=== PATIENT | female | born 1965 | race Two or more races ===

== ENCOUNTER 2021-05-18 18:53 | Emergency (ER) | payer SELFPAY ==
[~2021-05-18] VITALS: Ht 175.3 cm; Wt 77.1 kg
[2021-05-18 19:12] VITALS: BP 153/79
== END 2021-05-18 20:54 | disposition left against medical advice (07) ==
LOC: ER 18:55
DX: R07.0 Pain in throat (principal); Z53.21 Procedure and treatment not carried out due to patient leaving prior to being seen by health care provider

== ENCOUNTER 2025-07-07 18:36 | Inpatient (IN) | payer OTHER ==
[~2025-07-07] VITALS: Ht 175.3 cm; Wt 89.0 kg
[2025-07-07 20:53] LABS: Hematocrit 47.2 % (36.0-46.0); Hemoglobin 16.6 g/dL (12.2-16.2); Mean Corpuscular Hemoglobin 32.4 pg (28.0-32.0); Mean Corpuscular Volume 92.1 fL (80.0-100.0); Nucleated Red Blood Cells % 1.7 %
--- NOTE | 2025-07-07 21:07 | ED.PDOC ---
History of Present Illness HPI Comments 60 y/o F presents with c/c of right sided abdominal pain. Endorsement of 1x week history. She states on pain, now, radiating to her lower abdominal region, with associated nausea. Denies any vomiting, diarrhea, constipation, urinary symptoms, or further associated symptoms. 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 Family History Family History: Unknown Social History Smoker: Non-Smoker Alcohol: Occasionally Drugs: Denies Drug Use Lives In: Home All Other Systems: Reviewed and Negative (Comprehensive review of systems are negative unless stated in HPI) Physical Exam General Appearance: No Apparent Distress, Normal HEENT: Normal ENT Inspection, Pharynx Normal, TMs Normal Neck: Full Range of Motion, Non-Tender, Normal, Normal Inspection Respiratory: Chest Non-Tender, Lungs Clear, No Accessory Muscle Use, No Respiratory Distress, Normal Breath Sounds Cardiovascular: No Edema, No JVD, No Murmur, No Gallop, Normal Peripheral Pulses, Regular Rate/Rhythm Breast Exam: Deferred Gastrointestinal: No Organomegaly, No Pulsatile Mass, Normal Bowel Sounds, RLQ (tenderness ), Soft, Tenderness (RLQ) Genitalia: Deferred Pelvic: Deferred Rectal: Deferred Extremities: No calf tenderness, Normal capillary refill, Normal inspection, Normal range of motion, Non-tender, No pedal edema Musculoskeletal : Apperance: Normal Neurologic: Alert, license registration examiner [id number] nml as Tested, No Motor Deficits, Normal Affect, Normal Mood, No Sensory Deficits Cerebellar Function: Normal Reflexes: Normal Skin: Dry, Normal Color, Warm Lymphatic: No Adenopathy Was a procedure done? Was a procedure done?: No Differential Dx Considerations may include: Gastritis, gastroenteritis, GERD, cholelithiasis, cholecystitis, pyelonephritis, cystitis, nephrolithiasis, appendicitis, diverticulitis, PID, ovarian cysts/torsion, among others X-Ray, Labs, Meds, VS Vital Signs Date Time Temp Pulse Resp B/P (MAP) Pulse Ox O2 Delivery O2 Flow Rate FiO2 07/07/25 18:40 97.9 85 15 150/101 96 97.9 Lab Test 07/07/25 21:30 07/07/25 20:36 Range/Units Urine Color Colorless Yellow Urine Clarity Clear Clear Urine pH 5.0 5.0-9.0 Urine Specific [place] 1.008 1.001-1.035 Urine Protein Negative Negative Urine Ketones Negative Negative Urine Blood Negative Negative /uL Urine Nitrite Negative Negative Urine Bilirubin Negative Negative Urine Urobilinogen Normal Negative mg/dL Urine Leukocyte Esterase Negative Negative /uL Urine RBC <1 0 - 4 /hpf Urine Microscopic WBC < 1 0-5 /HPF Urine Squamous Epithelial Cells Few <5 /hpf Urine Bacteria None seen None Seen /hpf Urine Glucose Normal Normal mg/dL White Blood Count 11.0 H 4.4-10.8 10^3/uL Red Blood Count 5.13 4.0-5.20 10^6/uL Hemoglobin 16.6 H 12.2-16.2 g/dL Hematocrit 47.2 H 36.0-46.0 % Mean Corpuscular Volume 92.1 80.0-100.0 fL Mean Corpuscular Hemoglobin 32.4 H 28.0-32.0 pg Mean Corpuscular Hemoglobin Concent 35.2 32.0-36.0 g/dL Red Cell Distribution Width 13.4 11.8-14.3 % Platelet Count 205 140-450 10^3/uL Mean Platelet Volume 8.3 6.9-10.8 fL Neutrophils (%) (Auto) 79.4 37.0-80.0 % Lymphocytes (%) (Auto) 13.2 10.0-50.0 % Monocytes (%) (Auto) 6.4 0.0-12.0 % Eosinophils (%) (Auto) 0.7 0.0-7.0 % Basophils (%) (Auto) 0.3 0.0-2.0 % Neutrophils # (Auto) 8.8 H 1.6-8.6 10 ^3/uL Lymphocytes # (Auto) 1.5 0.4-5.4 10 ^3/uL Monocytes # (Auto) 0.7 0-1.3 10 ^3/uL Eosinophils # (Auto) 0.1 0-0.8 10 ^3/uL Basophils # (Auto) 0 0-0.2 10 ^3/uL Nucleated Red Blood Cells 1.7 % Sodium Level 143 136-145 mmol/L Potassium Level 4.3 3.5-5.1 mmol/L Chloride Level 104 98-107 mmol/L Carbon Dioxide Level 28 20-31 mmol/L Anion Gap 11 5-15 Blood Urea Nitrogen 10 9-23 mg/dL Creatinine 0.77 0.550-1.02 mg/dL Glomerular Filtration Rate Calc 88 >90 mL/min BUN/Creatinine Ratio 13.0 10.0-20.0 Serum Glucose 111 H 74-106 mg/dL Calcium Level 10.1 8.7-10.4 mg/dL Total Bilirubin 0.8 0.2-1.0 mg/dL Aspartate Amino Transferase (AST) 29 13-40 U/L Alanine Aminotransferase (ALT) 34 7-40 U/L Alkaline Phosphatase 82 46-116 U/L Total Protein 8.1 5.7-8.2 g/dL Albumin 4.8 3.2-4.8 g/dL Lipase 42 12-53 U/L Time of 1ST Reevaluation: 20:50 Reevaluation 1ST: Unchanged Patient Education/Counseling: Diagnosis, Treatment, Need For Follow Up Family Education/Counseling: No Family Present SEPSIS Sepsis Screen Date sepsis recognized/suspect: Jul 07, 2025 Time Sepsis recognized/suspect: 1841 Recent Procedure: No On Antibiotic Therapy: No Respiratory Rate >20: No Heart Rate >90: No Temp<36 C (96.8 F) or >38.3 C: No SBP <90 or MAP <65 mmHG: No New Acute Mental Status Change: No Is the patient on CPAP, BIPAP,: No Physician Orders Ct Ab Pel With Iv Con Only (07/07/25 20:19) Vital Signs Date Time Temp Pulse Resp B/P (MAP) Pulse Ox O2 Delivery O2 Flow Rate FiO2 07/07/25 18:40 97.9 85 15 150/101 96 97.9 Laboratory Tests Test 07/07/25 20:36 White Blood Count 11.0 10^3/uL (4.4-10.8) H Departure 1 Departure Time of Disposition: 22:37 Impression: Primary Impression: Ovarian mass, right Disposition: ADMITTED INPATIENT Admit to: Med Surg Condition: Guarded Discharged With: Self Comments 60-year-old female with right lower quadrant abdominal pain. CT of the abdomen and pelvis shows a large cystic right ovarian mass consistent with neoplasm. Patient is still in pain on re-evaluation. Patient will need to be admitted for supportive care and further workup. Critical Care Note Critical Care Time?: No Stability Stability form required: No Heart Score Heart Score: Heart Score Response (Comments) Value History N/A 0 EKG N/A 0 Age N/A 0 Risk Factors N/A 0 Troponin N/A 0 Total 0 I personally scribed for SPARKLE LOUISE MD ([email or web address]) on 07/07/25 at 21:07. Electronically submitted by Elbert Centeno ([email or web address]). SPARKLE LOUISE MD Jul 07, 2025 21:07
[2025-07-07 21:09] LABS: Alanine Aminotransferase 34 U/L (7-40); Alkaline Phosphatase 82 U/L (46-116); Anion Gap 11 (5-15); BUN/Creatinine Ratio 13.0 (10.0-20.0); Blood Urea Nitrogen 10 mg/dL (9-23); Calcium 10.1 mg/dL (8.7-10.4); Carbon Dioxide 28 mmol/L (20-31); Chloride 104 mmol/L (98-107); Lipase 42 U/L (12-53); Potassium 4.3 mmol/L (3.5-5.1); Sodium 143 mmol/L (136-145); Total Protein 8.1 g/dL (5.7-8.2)
[2025-07-07 21:10] LABS: Bilirubin, Total 0.8 mg/dL (0.2-1.0)
[2025-07-07 21:14] LABS: Albumin 4.8 g/dL (3.2-4.8); Glucose 111 mg/dL (74-106)
[2025-07-07 22:06] LABS: Urine Protein, UAD Negative (Negative)
--- NOTE | 2025-07-07 22:26 | DVH ---
Exam: CT CT AB PEL WITH IV CON ONLY History: RLQ pain COMPARISON: None Technique: Multidetector spiral CT of the abdomen and pelvis was performed from lung bases to pubic s ymphysis. Intravenous contrast was administered during this examination. Portal venous imaging was o btained. Axial, coronal and sagittal multiplanar reformats were performed by the technologist on a [employer] workstation. Radiation Dose : 1. Abdomen/Pelvis: CTDIvol 25.03mGy, DLP 1427.06 mGy*cm. CONTRAST: Type of contrast: Omnipaque 300 Contrast injected: 100 ml Findings: Lung Bases: No acute or significant lung base finding. Normal heart size. No pleural or pericardial effusion. Liver: The liver is normal in size. No focal lesions. Normal hepatic vascular enhancement. Gallbladder and Biliary Tree: Unremarkable Spleen: Unremarkable Pancreas: The pancreas is normal in appearance without focal lesions or abnormal enhancement. Adrenal Glands: Unremarkable Kidneys: No hydronephrosis. Bladder: Unremarkable Bowel: Small hiatal hernia. Small bowel and colon are normal in caliber and distribution. The appendi x is not visualized; however, no secondary findings of acute appendicitis identified. Ascites: Absent Lymphadenopathy: No mesenteric, retroperitoneal or periportal lymphadenopathy. Abdominal Wall and Mesentery: Unremarkable. Vasculature: The visualized abdominal aorta is normal in size and caliber. Abdominal and pelvic vess els demonstrate normal enhancement. Pelvic Organs: Large multiloculated cystic mass filling the lower abdomen and pelvis measuring 21.0 x 12.1 by 17.8 cm, presumably ovarian in origin. Few fairly thin septations noted. Some soft tissue se en within the right adnexa measuring 4.9 x 5.0 cm, likely right ovarian parenchyma. Musculoskeletal: No aggressive focal bony lesions, acute fractures or dislocation. IMPRESSION: Large cystic mass occupying the lower abdomen and pelvis, presumably a cystic ovarian neoplasm. Gynec ology consultation recommended to guide workup. Radiation optimization: All CT scans at this facility use at least one of these dose optimization devan hniques: automated exposure control mA and/or kV adjustment per patient size (includes targeted exam s where dose is matched to clinical indication) or iterative reconstruction.
[2025-07-07] MEDS: SODIUM CHLORIDE 0.9% 1,000 ML IV ONE (22:47)
[2025-07-07 22:52] VITALS: PULSE 94; RESP 17; O2SAT 97
--- NOTE | 2025-07-07 23:32 | DVHHPRES ---
History of Present Illness Resident Creating Document: SANJU COHEN History of Present Illness Ms. Loo is a 60-year-old female with no prior medical history, who presents today with chief complaint of constipation and abdominal pain. The patient states for the last 7 days she has had sharp pain in the right lumbar region which migrates on occasion to left lumbar region and lower abdominal quadrant as well, without aggravating factors, with minor relief on laying down, associated constipation for the last 3 days, abdominal bloating, fullness sensation, fatigue, and urinary frequency. She denies vomiting, unintended weight loss, vaginal bleeding, chest pain, shortness of breath, and other symptoms. On evaluation in the ED, patient was hypertensive other vitals were stable. Initial labs show leukocytosis, CMP within normal range, and UA without significant findings. Abdominal/pelvic CT shows large multiloculated cystic mass filling the lower abdomen and pelvis measuring 21 x 12.1 x 17.8 cm, presumably ovarian in origin, with few fairly thin septations noted, presumably a cystic ovarian neoplasm. She was admitted for further work up and monitoring. Prior medical history: Denies Surgical history: Breast reduction surgery, tonsillectomy Family history: -Mother: Colon cancer, uterine cancer -Maternal grandmother: Colon cancer -Sister: Type 1 diabetes mellitus Allergies: Ciprofloxacin (caused extreme weakness) Social: Denies drug and tobacco use. States she drinks 2 glasses of wine nightly. She states she lives with her and feels safe. Review of Systems Review of Systems Constitutional: Refers fatigue and malaise, Denies weight loss, fever and chills. HEENT: Denies changes in vision and hearing. Respiratory: Denies shortness of breath and cough Cardiovascular: Denies chest discomfort or palpitations GI: Refers abdominal pain, bloating, fullness sensation, and constipation, Denies diarrhea : Refers urinary frequency, Denies dysuria Musculoskeletal: Denies symptoms Skin: Denies rash and pruritus. Neurological: denies dizziness headache vision or hearing problems Allergies: Coded Allergies: Ciprofloxacin (Verified Allergy, Unknown, 05/18/21) Exam Vital Signs Vital Signs Date Time Temp Pulse Resp B/P (MAP) Pulse Ox O2 Delivery O2 Flow Rate FiO2 07/07/25 22:52 94 17 97 Room Air* 0 21 07/07/25 22:52 98.9 130/79 (96) 98.9 Exam General: The patient alert and oriented in person place and time. Patient following commands HEENT: Normocephalic, atraumatic, normal reactive pupils, EOM intact, pink conjunctiva, pink moist mucous membrane Respiratory/pulmonary: Bilateral chest expansion, no pain on palpation of chest wall, clear lungs bilaterally, vesicular murmurs present in almost all lung suggs, no associated crackles or wheezes. Cardiovascular: Normal RRR, normal S1 and S2, no murmurs Abdomen: Abdomen nondistended, normal bowel sounds, soft, pain on palpation of umbilical region and lower abdominal quadrants, could not evaluate masses due to pain Extremities: No deformities, there is no peripheral edema present at the lower extremities, normal pulses Skin: No rashes or pruritus, there is no sacral edema present at this time. Neurological: Intact cranial nerves with no focal neurologic deficits Labs/Xrays Labs Test 07/07/25 21:30 07/07/25 20:36 Range/Units Urine Color Colorless Yellow Urine Clarity Clear Clear Urine pH 5.0 5.0-9.0 Urine Specific [place] 1.008 1.001-1.035 Urine Protein Negative Negative Urine Ketones Negative Negative Urine Blood Negative Negative /uL Urine Nitrite Negative Negative Urine Bilirubin Negative Negative Urine Urobilinogen Normal Negative mg/dL Urine Leukocyte Esterase Negative Negative /uL Urine RBC <1 0 - 4 /hpf Urine Microscopic WBC < 1 0-5 /HPF Urine Squamous Epithelial Cells Few <5 /hpf Urine Bacteria None seen None Seen /hpf Urine Glucose Normal Normal mg/dL White Blood Count 11.0 H 4.4-10.8 10^3/uL Red Blood Count 5.13 4.0-5.20 10^6/uL Hemoglobin 16.6 H 12.2-16.2 g/dL Hematocrit 47.2 H 36.0-46.0 % Mean Corpuscular Volume 92.1 80.0-100.0 fL Mean Corpuscular Hemoglobin 32.4 H 28.0-32.0 pg Mean Corpuscular Hemoglobin Concent 35.2 32.0-36.0 g/dL Red Cell Distribution Width 13.4 11.8-14.3 % Platelet Count 205 140-450 10^3/uL Mean Platelet Volume 8.3 6.9-10.8 fL Neutrophils (%) (Auto) 79.4 37.0-80.0 % Lymphocytes (%) (Auto) 13.2 10.0-50.0 % Monocytes (%) (Auto) 6.4 0.0-12.0 % Eosinophils (%) (Auto) 0.7 0.0-7.0 % Basophils (%) (Auto) 0.3 0.0-2.0 % Neutrophils # (Auto) 8.8 H 1.6-8.6 10 ^3/uL Lymphocytes # (Auto) 1.5 0.4-5.4 10 ^3/uL Monocytes # (Auto) 0.7 0-1.3 10 ^3/uL Eosinophils # (Auto) 0.1 0-0.8 10 ^3/uL Basophils # (Auto) 0 0-0.2 10 ^3/uL Nucleated Red Blood Cells 1.7 % Sodium Level 143 136-145 mmol/L Potassium Level 4.3 3.5-5.1 mmol/L Chloride Level 104 98-107 mmol/L Carbon Dioxide Level 28 20-31 mmol/L Anion Gap 11 5-15 Blood Urea Nitrogen 10 9-23 mg/dL Creatinine 0.77 0.550-1.02 mg/dL Glomerular Filtration Rate Calc 88 >90 mL/min BUN/Creatinine Ratio 13.0 10.0-20.0 Serum Glucose 111 H 74-106 mg/dL Calcium Level 10.1 8.7-10.4 mg/dL Total Bilirubin 0.8 0.2-1.0 mg/dL Aspartate Amino Transferase (AST) 29 13-40 U/L Alanine Aminotransferase (ALT) 34 7-40 U/L Alkaline Phosphatase 82 46-116 U/L Total Protein 8.1 5.7-8.2 g/dL Albumin 4.8 3.2-4.8 g/dL Lipase 42 12-53 U/L SEPSIS Sepsis Screen Date sepsis recognized/suspect: Jul 07, 2025 Time Sepsis recognized/suspect: 1841 Recent Procedure: No On Antibiotic Therapy: No Respiratory Rate >20: No Heart Rate >90: No Temp<36 C (96.8 F) or >38.3 C: No SBP <90 or MAP <65 mmHG: No New Acute Mental Status Change: No Is the patient on CPAP, BIPAP,: No Physician Orders Ct Ab Pel With Iv Con Only (07/07/25 20:19) Vital Signs Date Time Temp Pulse Resp B/P (MAP) Pulse Ox O2 Delivery O2 Flow Rate FiO2 07/07/25 22:52 94 17 97 Room Air* 0 21 07/07/25 22:52 98.9 94 17 130/79 (96) 97 98.9 07/07/25 18:40 97.9 85 15 150/101 96 97.9 Laboratory Tests Test 07/07/25 20:36 White Blood Count 11.0 10^3/uL (4.4-10.8) H Medications Medications Dose Ordered Sig/Julian Route Start Time Stop Time Status Last Admin Dose Admin Sodium Chloride 1,000 ml @ 1,000 mls/hr Q1H ONCE IV 07/07/25 20:30 07/07/25 21:29 DC 07/07/25 22:47 1,000 MLS/HR Assessment/Plan Assessment/Plan Assessment and Plan: Ovarian Mass Possible bowel obstruction due to above - Abdomen/pelvic CT: Large multiloculated cystic mass filling the lower abdomen and pelvis measuring 21 x 12.1 x 17.8 cm, presumably ovarian in origin. Few fairly thin septations noted. Some soft tissue seen within the right adnexa measuring 4.9 x 5.0 cm, likely right ovarian parenchyma. Presumably a cystic ovarian neoplasm. - CA125 ordered - CEA ordered - OBGYN consult has been ordered - NPO pending OBGYN evaluation - NS 1000 cc bolus IV once - NS maintenance 75 cc/hr IV - Zofran 4 mg IV q 4 hours PRN Intractable abdominal secondary to above - Toradol 15 mg IV q.6 hours PRN Diet: NPO DVT prophylaxis: Enoxaparin 40 mg SC daily GI prophylaxis: Protonix 40 mg IV daily Case discussed with Dr. Quintanilla Goals of care discussed with the patient for over 26 minutes. FULL CODE. Plan discussed with: Patient, Other (Nurses) Date of Service: Jul 07, 2025 Billing Provider: SHERRIE CARO MD Common Visit Codes: 63070-[id number] INP/OBS CARE (HIGH) Secondary Visit Codes: 05714-[id number] CARE PLAN 30 MINUTES SANJU COHEN RESIDENT Jul 07, 2025 23:32 TALI VELÁSQUEZ RESIDENT Jul 08, 2025 08:49
[2025-07-08] MEDS: SODIUM CHLORIDE 0.9% 1,000 ML IV SCH
[2025-07-08] MEDS ORDERED: ONDANSETRON HCL 4 MG/2 ML VIAL IV PRN
[2025-07-08 01:32] VITALS: BP 143/96; PULSE 88; RESP 18; TEMP 98.6; O2SAT 96
[2025-07-08 01:34] VITALS: BP 143/96; PULSE 88; RESP 18; TEMP 98.6; O2SAT 96
[2025-07-08] MEDS: PANTOPRAZOLE 40 MG/10 ML VIAL INJ IV ONE (03:02)
[2025-07-08 03:18] LABS: Amphetamine Screen, Urine Neg (NEGATIVE); Barbiturate Scree,Urine Neg (NEGATIVE); Benzodiazephine Screen, Urine Neg (NEGATIVE); Cannabinoid Screen, Urine Neg (NEGATIVE); Cocaine Screen, Urine Neg (NEGATIVE); Opiate Scree,Urine Neg (NEGATIVE); Phencyclidine Screen, Urine Neg (NEGATIVE)
[2025-07-08 05:55] LABS: Hematocrit 44.1 % (36.0-46.0); Hemoglobin 15.2 g/dL (12.2-16.2); Mean Corpuscular Hemoglobin 32.0 pg (28.0-32.0); Mean Corpuscular Volume 92.7 fL (80.0-100.0); Nucleated Red Blood Cells % 0.0 %
[2025-07-08 06:06] LABS: Anion Gap 10 (5-15); Carbon Dioxide 27 mmol/L (20-31); Potassium 3.8 mmol/L (3.5-5.1); Sodium 144 mmol/L (136-145)
[2025-07-08 06:07] LABS: Calcium 9.1 mg/dL (8.7-10.4)
[2025-07-08 06:12] LABS: BUN/Creatinine Ratio 13.0 (10.0-20.0); Blood Urea Nitrogen 9 mg/dL (9-23); Glucose 102 mg/dL (74-106); Magnesium 2.1 mg/dL (1.6-2.6)
[2025-07-08 06:22] LABS: Chloride 107 mmol/L (98-107)
[2025-07-08 08:10] VITALS: PULSE 72; RESP 18; O2SAT 94
[2025-07-08 08:29] VITALS: BP 150/85; PULSE 72; RESP 18; TEMP 98.6; O2SAT 94
[2025-07-08] MEDS: KETOROLAC TROMETH 30 MG/ML 1ML VIAL IV PRN (08:56)
[2025-07-08] MEDS: ENOXAPARIN SOD 40 MG/0.4 ML SYRINGE SC SCH (08:56)
[2025-07-08] MEDS ORDERED: POLYETHYLENE GLYCOL 17 GM PWDR PO PRN (09:00)
--- NOTE | 2025-07-08 09:14 | DVH ---
INDICATION: Ovarian mass, r/o malignancy TECHNIQUE: Multiple real-time grayscale transabdominal sonographic images along with color and duplex Doppler of the uterus and ovaries were obtained. COMPARISON: 07/07/2025 FINDINGS: The uterus measures 8.2 x 5.3 x 4.2 cm. The endometrial stripe measures 1.7 cm. The right ovary measures 19.0 x 16.1 x 20.3 cm. Complex right adnexal cystic mass measuring 16 cm. The left ovary is not well visualized due to obscuration from bowel gas. IMPRESSION: Complex right adnexal cystic mass measuring 16 cm. 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 Recommend gynecologic consultation and correlation with serum ovarian tumor markers.
[2025-07-08 10:15] LABS: Carcinoembryonic Antigen < 0.50 ng/mL (<=5.0)
--- NOTE | 2025-07-08 11:04 | DVHINCON2 ---
Date of service: Jul 08, 2025 Referring Physician hospitalist Reason for Consultation ovarian mass History of Present Illness 60 y/o FEMALE ADMITTED FOR ABDOMINAL PAIN,CONSTIPATION AND SHARP LOWER ABD PAIN OF 3 DAY DURATION ASSOCIATED WITH SOME NAUSEA..HER LAST PAP WAS MANY YRS AGO .SHE DENIES HAVING ANY POST MENOUPAUSAL BLEEDING .MENOPAUSE WAS AT [facility]. CT OF ABDOMEN REVEALS MULTILOCULATED CYSTIC MASS OCCUPAYING LOWER ABD AND PELVIC [id number] CM.CA125 IS PENDING Past Medical History NONE Past Surgical History TONSILECTOMY AND BREAST REDUCTION Family History POS FOR DM,UTERINE CA AND COLON CA Social History ONE ,NO ETOH OR TOBACCO USE Patient Family History: Colon cancer G8 MOTHER Diabetes mellitus G8 FATHER FH: uterine cancer G8 MOTHER Allergies: Coded Allergies: Ciprofloxacin (Verified Allergy, Unknown, 05/18/21) Home Meds No Active Prescriptions or Reported Meds Current Medications Current Medications Medications (Trade) Dose Ordered Sig/Julian Route PRN Reason Start Time Stop Time Status Last Admin Enoxaparin Sodium (Lovenox) 40 mg DAILY SC 07/08/25 10:00 07/08/25 08:56 Sodium Chloride 1,000 ml @ 75 mls/hr [id number] IV 07/08/25 00:00 Ketorolac Tromethamine (Toradol Injection) 15 mg Q6HPRN PRN IV MILD PAIN (1-3 PAIN SCALE) 07/08/25 00:00 07/13/25 00:00 07/08/25 08:56 Ondansetron HCl (Zofran) 4 mg Q4HPRN PRN IV NAUSEA / VOMITING 07/08/25 00:00 Pantoprazole Sodium (Protonix) 40 mg DAILY IV 07/09/25 10:00 Polyethylene Glycol (Miralax 17GM Powder) 17 gm DAILYPRN PRN PO FOR CONSTIPATION 07/08/25 09:00 Review of Systems Constitutional: no fever, chill, weight loss HEENT: no eye pain, no hearing loss, no oral lesion, no scleral icterus Heart: no chest pain, no chest pressure Lung: no cough, no dyspnea with exertion Abdomen: see HPI : no pain with urination, normal appearing urine Musculoskeletal: no joint pain, no muscle pain Neurological: no seizure, no loss of sensation, no weakness in extremities Pysch: no depression, no anxiety Derm: no rash, no jaundice Vital Signs Vital Signs Date Time Temp Pulse Resp B/P (MAP) Pulse Ox O2 Delivery O2 Flow Rate FiO2 07/08/25 08:29 98.6 72 18 150/85 (106) 94 98.6 07/08/25 08:10 Room Air* 0 21 Physical Exam SKIN: [NL] HEENT: [NL] NECK: [NL] CARDIAC: [RRR] PULMONARY: [CTA] ABDOMEN: [OBESE,SOMEWHAT DISTENDED,POS BS,VOLUNTARY REBOUND AND TENDERNESS LOWER ABD NOTED] BREASTS SYMMETRICAL,NO MASSES PELVIC-EXT GENT WNL,VAG ATROPHIC,CX GROSSLY NL ,UTERUS NL SIZE,ADENXAL TENDERNESS BILT EXT-NO CCE Labs/Diagnostic Data Labs Test 07/08/25 05:12 07/08/25 02:30 07/07/25 21:30 07/07/25 20:36 Range/Units White Blood Count 7.1 # 4.4-10.8 10^3/uL Red Blood Count 4.76 4.0-5.20 10^6/uL Hemoglobin 15.2 12.2-16.2 g/dL Hematocrit 44.1 36.0-46.0 % Mean Corpuscular Volume 92.7 80.0-100.0 fL Mean Corpuscular Hemoglobin 32.0 28.0-32.0 pg Mean Corpuscular Hemoglobin Concent 34.5 32.0-36.0 g/dL Red Cell Distribution Width 13.5 11.8-14.3 % Platelet Count 184 140-450 10^3/uL Mean Platelet Volume 8.2 6.9-10.8 fL Neutrophils (%) (Auto) 55.9 37.0-80.0 % Lymphocytes (%) (Auto) 33.6 10.0-50.0 % Monocytes (%) (Auto) 8.5 0.0-12.0 % Eosinophils (%) (Auto) 1.5 0.0-7.0 % Basophils (%) (Auto) 0.5 0.0-2.0 % Neutrophils # (Auto) 3.9 1.6-8.6 10 ^3/uL Lymphocytes # (Auto) 2.4 0.4-5.4 10 ^3/uL Monocytes # (Auto) 0.6 0-1.3 10 ^3/uL Eosinophils # (Auto) 0.1 0-0.8 10 ^3/uL Basophils # (Auto) 0 0-0.2 10 ^3/uL Nucleated Red Blood Cells 0.0 % Sodium Level 144 136-145 mmol/L Potassium Level 3.8 3.5-5.1 mmol/L Chloride Level 107 98-107 mmol/L Carbon Dioxide Level 27 20-31 mmol/L Anion Gap 10 5-15 Blood Urea Nitrogen 9 9-23 mg/dL Creatinine 0.69 0.550-1.02 mg/dL Glomerular Filtration Rate Calc 99 >90 mL/min BUN/Creatinine Ratio 13.0 10.0-20.0 Serum Glucose 102 74-106 mg/dL Calcium Level 9.1 8.7-10.4 mg/dL Phosphorus Level 2.9 2.4-5.1 mg/dL Magnesium Level 2.1 1.6-2.6 mg/dL Carcinoembryonic Antigen < 0.50 <=5.0 ng/mL Vitamin B12 Level 529 211-911 pg/mL Vitamin D 25-Hydroxy 40.8 30.0-100 ng/mL Thyroid Stimulating Hormone (TSH) 3.67 0.55-4.78 uIU/mL Urine Opiates Screen Neg NEGATIVE Urine Fentanyl Screen Neg NEGATIVE Urine Barbiturates Screen Neg NEGATIVE Urine Phencyclidine Screen Neg NEGATIVE Urine Amphetamines Screen Neg NEGATIVE Urine Benzodiazepines Screen Neg NEGATIVE Urine Cocaine Screen Neg NEGATIVE Urine Cannabinoids Screen Neg NEGATIVE Urine Color Colorless Yellow Urine Clarity Clear Clear Urine pH 5.0 5.0-9.0 Urine Specific [place] 1.008 1.001-1.035 Urine Protein Negative Negative Urine Ketones Negative Negative Urine Blood Negative Negative /uL Urine Nitrite Negative Negative Urine Bilirubin Negative Negative Urine Urobilinogen Normal Negative mg/dL Urine Leukocyte Esterase Negative Negative /uL Urine RBC <1 0 - 4 /hpf Urine Microscopic WBC < 1 0-5 /HPF Urine Squamous Epithelial Cells Few <5 /hpf Urine Bacteria None seen None Seen /hpf Urine Glucose Normal Normal mg/dL Hemoglobin A1c 5.3 <5.7 % A1C Total Bilirubin 0.8 0.2-1.0 mg/dL Aspartate Amino Transferase (AST) 29 13-40 U/L Alanine Aminotransferase (ALT) 34 7-40 U/L Alkaline Phosphatase 82 46-116 U/L Total Protein 8.1 5.7-8.2 g/dL Albumin 4.8 3.2-4.8 g/dL Lipase 42 12-53 U/L Primary Diagnosis ABDOMINAL PAIN DUE TO PELVIC MASS PELVIC MASS SUSPICIOUS FOR OVARIAN CANCER Plan RECOMMEND TRANSFER TO [facility] FOR PRICING ASSOCIATE ONC CONSULTATION AND SURGERY . SPOKE TO PT WHO FULLY UNDERSTANDS AND AGREES WITH PLAN Plan discussed with: Patient Visit Coding OBGYN Date of Service: Jul 08, 2025 Billing Provider: JUMA DRAKE DO SYSTEMS SECURITY CONSULTANT Common Visit Codes: 71493-[id number] OBS CARE (HIGH) SYSTEMS SECURITY CONSULTANT Consultation Codes: [id number] CONSULT <110MIN JUMA DRAKE DO Jul 08, 2025 11:04
[2025-07-08] MEDS ORDERED: MORPHINE SULFATE INJ 2 MG/ml SYRG IV PRN (11:45)
[2025-07-08 13:00] VITALS: BP 142/91; PULSE 76; RESP 18; TEMP 98.1; O2SAT 95
--- NOTE | 2025-07-08 15:34 | DVHDSRES ---
Discharge Summary Date of Admission Resident Creating Document: KRISTIAN RAMON RESIDENT Jul 07, 2025 at 23:29 Date of Discharge: Jul 08, 2025 Admitting Diagnosis abdominal pain Labs/Diagnostic Data: Laboratory Results Test 07/08/25 05:12 07/08/25 02:30 07/07/25 21:30 07/07/25 20:36 White Blood Count 7.1 10^3/uL (4.4-10.8) Red Blood Count 4.76 10^6/uL (4.0-5.20) Hemoglobin 15.2 g/dL (12.2-16.2) Hematocrit 44.1 % (36.0-46.0) Mean Corpuscular Volume 92.7 fL (80.0-100.0) Mean Corpuscular Hemoglobin 32.0 pg (28.0-32.0) Mean Corpuscular Hemoglobin Concent 34.5 g/dL (32.0-36.0) Red Cell Distribution Width 13.5 % (11.8-14.3) Platelet Count 184 10^3/uL (140-450) Mean Platelet Volume 8.2 fL (6.9-10.8) Neutrophils (%) (Auto) 55.9 % (37.0-80.0) Lymphocytes (%) (Auto) 33.6 % (10.0-50.0) Monocytes (%) (Auto) 8.5 % (0.0-12.0) Eosinophils (%) (Auto) 1.5 % (0.0-7.0) Basophils (%) (Auto) 0.5 % (0.0-2.0) Neutrophils # (Auto) 3.9 10 ^3/uL (1.6-8.6) Lymphocytes # (Auto) 2.4 10 ^3/uL (0.4-5.4) Monocytes # (Auto) 0.6 10 ^3/uL (0-1.3) Eosinophils # (Auto) 0.1 10 ^3/uL (0-0.8) Basophils # (Auto) 0 10 ^3/uL (0-0.2) Nucleated Red Blood Cells 0.0 % Sodium Level 144 mmol/L (136-145) Potassium Level 3.8 mmol/L (3.5-5.1) Chloride Level 107 mmol/L (98-107) Carbon Dioxide Level 27 mmol/L (20-31) Anion Gap 10 (5-15) Blood Urea Nitrogen 9 mg/dL (9-23) Creatinine 0.69 mg/dL (0.550-1.02) Glomerular Filtration Rate Calc 99 mL/min (>90) BUN/Creatinine Ratio 13.0 (10.0-20.0) Serum Glucose 102 mg/dL (74-106) Calcium Level 9.1 mg/dL (8.7-10.4) Phosphorus Level 2.9 mg/dL (2.4-5.1) Magnesium Level 2.1 mg/dL (1.6-2.6) Carcinoembryonic Antigen < 0.50 ng/mL (<=5.0) Vitamin B12 Level 529 pg/mL (211-911) Vitamin D 25-Hydroxy 40.8 ng/mL (30.0-100) Thyroid Stimulating Hormone (TSH) 3.67 uIU/mL (0.55-4.78) Urine Opiates Screen Neg (NEGATIVE) Urine Fentanyl Screen Neg (NEGATIVE) Urine Barbiturates Screen Neg (NEGATIVE) Urine Phencyclidine Screen Neg (NEGATIVE) Urine Amphetamines Screen Neg (NEGATIVE) Urine Benzodiazepines Screen Neg (NEGATIVE) Urine Cocaine Screen Neg (NEGATIVE) Urine Cannabinoids Screen Neg (NEGATIVE) Urine Color Colorless (Yellow) Urine Clarity Clear (Clear) Urine pH 5.0 (5.0-9.0) Urine Specific [place] 1.008 (1.001-1.035) Urine Protein Negative (Negative) Urine Ketones Negative (Negative) Urine Blood Negative /uL (Negative) Urine Nitrite Negative (Negative) Urine Bilirubin Negative (Negative) Urine Urobilinogen Normal mg/dL (Negative) Urine Leukocyte Esterase Negative /uL (Negative) Urine RBC <1 /hpf (0 - 4) Urine Microscopic WBC < 1 /HPF (0-5) Urine Squamous Epithelial Cells Few /hpf (<5) Urine Bacteria None seen /hpf (None Seen) Urine Glucose Normal mg/dL (Normal) Hemoglobin A1c 5.3 % A1C (<5.7) Total Bilirubin 0.8 mg/dL (0.2-1.0) Aspartate Amino Transferase (AST) 29 U/L (13-40) Alanine Aminotransferase (ALT) 34 U/L (7-40) Alkaline Phosphatase 82 U/L (46-116) Total Protein 8.1 g/dL (5.7-8.2) Albumin 4.8 g/dL (3.2-4.8) Lipase 42 U/L (12-53) Other Laboratory Tests 07/08/25 05:12 Brief Hx & Hospital Course: Ms. Bose is a 60-year-old female with no prior medical history, who presents today with chief complaint of constipation and abdominal pain. The patient states for the last 7 days she has had sharp pain in the right lumbar region which migrates on occasion to left lumbar region and lower abdominal quadrant as well, without aggravating factors, with minor relief on laying down, associated constipation for the last 3 days, abdominal bloating, fullness sensation, fatigue, and urinary frequency. She denies vomiting, unintended weight loss, vaginal bleeding, chest pain, shortness of breath, and other symptoms. On evaluation in the ED, patient was hypertensive other vitals were stable. Initial labs show leukocytosis, CMP within normal range, and UA without significant findings. A CT scan of the abdomen and pelvis with IV contrast was ordered to evaluate the etiology of her symptoms. Imaging revealed a large multiloculated cystic mass occupying the lower abdomen and pelvis, measuring approximately 21.0 x 12.1 x 17.8 cm, presumed to be ovarian in origin. Additionally, a soft tissue structure within the right adnexa measuring 4.9 x 5.0 cm was noted, likely representing right ovarian parenchyma. No evidence of acute appendicitis or other significant intra-abdominal pathology was identified. 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 Efforts were made to transfer the patient to ([facility]) for specialized gynecologic oncology evaluation and potential surgical intervention. However, transfer to [facility] was declined. Exam General: The patient alert and oriented in person place and time. Patient following commands HEENT: Normocephalic, atraumatic, normal reactive pupils, EOM intact, pink conjunctiva, pink moist mucous membrane Respiratory/pulmonary: Bilateral chest expansion, no pain on palpation of chest wall, clear lungs bilaterally, vesicular murmurs present in almost all lung suggs, no associated crackles or wheezes. Cardiovascular: Normal RRR, normal S1 and S2, no murmurs Abdomen: Abdomen nondistended, normal bowel sounds, soft, pain on palpation of umbilical region and lower abdominal quadrants, could not evaluate masses due to pain Extremities: No deformities, there is no peripheral edema present at the lower extremities, normal pulses Skin: No rashes or pruritus, there is no sacral edema present at this time. Neurological: Intact cranial nerves with no focal neurologic deficits Operations or Procedures PATIENT: ANGIE BOSE ACCT: [id number] UNIT: [id number] : 1965 LOC: [facility] ROOM / BED: [address] [place] [address] AGE / SEX: 60 / F ADM STATUS: ADM IN SERVICE 0247 ORDERING PHYSICIAN: TALI VELÁSQUEZ RESIDENT PROCEDURE(s): PELUS - PELVIC REASON: Ovarian mass, r/o malignancy ORDER NUMBER(s): [id number], ACCESSION NUMBER(s): [id number] INDICATION: Ovarian mass, r/o malignancy TECHNIQUE: Multiple real-time grayscale transabdominal sonographic images along with color and duplex Doppler of the uterus and ovaries were obtained. COMPARISON: 07/07/2025 FINDINGS: The uterus measures 8.2 x 5.3 x 4.2 cm. The endometrial stripe measures 1.7 cm. The right ovary measures 19.0 x 16.1 x 20.3 cm. Complex right adnexal cystic mass measuring 16 cm. The left ovary is not well visualized due to obscuration from bowel gas. IMPRESSION: Complex right adnexal cystic mass measuring 16 cm. 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 Recommend gynecologic consultation and correlation with serum ovarian tumor markers. PATIENT: ANGIE BOSE ACCT: [id number] UNIT: [id number] : 1965 LOC: ER ROOM / BED: / AGE / SEX: 60 / F ADM STATUS: REG ER SERVICE 18 ORDERING PHYSICIAN: SPARKLE LOUISE MD PROCEDURE(s): ABPLIV - CT AB PEL WITH IV CON ONLY REASON: RLQ pain ORDER NUMBER(s): [id number], ACCESSION NUMBER(s): [id number] Exam: CT CT AB PEL WITH IV CON ONLY History: RLQ pain COMPARISON: None Technique: Multidetector spiral CT of the abdomen and pelvis was performed from lung bases to pubic symphysis. Intravenous contrast was administered during this examination. Portal venous imaging was obtained. Axial, coronal and sagittal multiplanar reformats were performed by the technologist on a separate workstation. Radiation Dose : 1. Abdomen/Pelvis: CTDIvol 25.03mGy, DLP 1427.06 mGy*cm. CONTRAST: Type of contrast: Omnipaque 300 Contrast injected: 100 ml Findings: Lung Bases: No acute or significant lung base finding. Normal heart size. No pleural or pericardial effusion. Liver: The liver is normal in size. No focal lesions. Normal hepatic vascular enhancement. Gallbladder and Biliary Tree: Unremarkable Spleen: Unremarkable Pancreas: The pancreas is normal in appearance without focal lesions or abnormal enhancement. Adrenal Glands: Unremarkable Kidneys: No hydronephrosis. Bladder: Unremarkable Bowel: Small hiatal hernia. Small bowel and colon are normal in caliber and distribution. The appendix is not visualized; however, no secondary findings of acute appendicitis identified. Ascites: Absent Lymphadenopathy: No mesenteric, retroperitoneal or periportal lymphadenopathy. Abdominal Wall and Mesentery: Unremarkable. Vasculature: The visualized abdominal aorta is normal in size and caliber. Abdominal and pelvic vessels demonstrate normal enhancement. Pelvic Organs: Large multiloculated cystic mass filling the lower abdomen and pelvis measuring 21.0 x 12.1 by 17.8 cm, presumably ovarian in origin. Few fairly thin septations noted. Some soft tissue seen within the right adnexa measuring 4.9 x 5.0 cm, likely right ovarian parenchyma. Musculoskeletal: No aggressive focal bony lesions, acute fractures or dislocation. IMPRESSION: Large cystic mass occupying the lower abdomen and pelvis, presumably a cystic ovarian neoplasm. Gynecology consultation recommended to guide workup. Radiation optimization: All CT scans at this facility use at least one of these dose optimization techniques: automated exposure control mA and/or kV adjustment per patient size (includes targeted exams where dose is matched to clinical indication) or iterative reconstruction. Condition at Discharge: Stable Final Diagnosis/Problems List Ovarian Mass Possible bowel obstruction due to above Intractable abdominal secondary to above Discharge Disposition: Home Discharge Instruct/Medications Diet: Regular Activity: Light activity Follow Up/Referral: Follow up with PCP within 1 week Medications: continue home medications Scheduled PRN Polyethylene Glycol (Miralax), 17 GM PO DAILY PRN Discharge Statement: "Patient was advised to return to the ER or call 911 if any headaches, dizziness, shortness of breath, chest pain, abdominal pain, bleeding, fevers, or worsening of medical condition. Patient was counseled about treatment plan, medications, possible side effects, patientverbalized understanding. All questions were answered to the best of my ability. This discharge took greater then 30 minutes in planning, reviewing documentation, counseling the patient, and discussing with other team members." ASSESSMENT ASSESSMENT Assessment Ovarian Mass Possible bowel obstruction due to above Intractable abdominal secondary to above Date of Service: Jul 08, 2025 Billing Provider: DANE BRANDT MD Common Visit Codes: 52619-JGM/OBS DISCH DAY >30min KRISTIAN RAMON RESIDENT Jul 08, 2025 15:34 DANE BRANDT MD Jul 09, 2025 10:15
[2025-07-08 15:54] VITALS: BP 150/85; PULSE 72; RESP 18; TEMP 98.6; O2SAT 94
[2025-07-08] MEDS ORDERED: POLY33505 PO (16:25)
[2025-07-09] MEDS ORDERED: PANTOPRAZOLE 40 MG TAB PO SCH (06:00)
[2025-07-09] MEDS ORDERED: PANTOPRAZOLE 40 MG/10 ML VIAL INJ IV SCH (10:00)
== END 2025-07-08 16:25 | disposition home or self-care (01) | DRG 755 ==
LOC: ER 18:36 → OVERFLOW 23:29 → WEST WING 07-08 01:35
PROVIDERS: ADMIT Internal Medicine
DX: D39.11 Neoplasm of uncertain behavior of right ovary (principal); K56.609 Unspecified intestinal obstruction, unspecified as to partial versus complete obstruction; Z80.49 Family history of malignant neoplasm of other genital organs; Z83.3 Family history of diabetes mellitus; Z80.0 Family history of malignant neoplasm of digestive organs; Z88.1 Allergy status to other antibiotic agents; Z79.899 Other long term (current) drug therapy
CPT/HCPCS: 36415; 74177; 76856; 80048; 80053; 80307; 81001; 82306; 82378; 82607; 83036; 83690; 83735; 84100; 84443; 85025; 86304; 87086; 96360; G0378; J1885; J2470